=== PATIENT | female | born 1990 | race African-American/Black ===

== ENCOUNTER 2017-08-19 22:30 | Emergency (ER) | payer BC ==
[~2017-08-19] VITALS: Ht 165.1 cm; Wt 124.7 kg
--- OUTSIDE RECORDS SUMMARY | 2017-08-19 22:32 | XMS REPORT ---
Author Author [facility] Address Unknown Phone Unavailable Care Team Providers Care [employer] Dyer Name Role Phone Unavailable Unavailable Problems This patient has no known problems. Allergies, Adverse Reactions, Alerts This patient has no known allergies or adverse reactions. Medications This patient has no known medications. Encounters Start Date/Time End Date/Time Encounter Type Admission Type Attending [facility] Department Encounter ID 2018-06-05 00:00:00 2018-06-05 00:00:00 Outpatient [facility] [id number] 2017-10-18 00:00:00 2017-10-18 00:00:00 Outpatient [facility] [id number] 2017-09-22 00:00:00 2017-09-22 00:00:00 Outpatient [facility] [id number] 2017-09-15 00:00:00 2017-09-15 00:00:00 Outpatient [facility] [id number] 2017-09-08 00:00:00 2017-09-08 00:00:00 Outpatient [facility] [id number] 2017-09-02 00:00:00 2017-09-02 00:00:00 Outpatient [facility] [id number] 2017-08-25 00:00:00 2017-08-25 00:00:00 Outpatient [facility] [id number] 2017-08-25 00:00:00 2017-08-25 00:00:00 Outpatient [facility] [id number] 2017-07-28 15:49:16 2017-07-28 15:49:16 Outpatient [facility] [id number] 2017-06-13 10:43:01 2017-06-13 10:43:01 Outpatient [facility] [id number] 2017-06-02 12:54:31 2017-06-02 12:54:31 Outpatient [facility] [id number] 2017-06-02 09:52:52 2017-06-02 09:52:52 Outpatient [facility] [id number]
== END 2017-08-19 23:00 | disposition left against medical advice (07) ==
LOC: ER 22:30
DX: R42 Dizziness and giddiness (principal)
CPT/HCPCS: 93005

== ENCOUNTER 2024-04-29 00:36 | Emergency (ER) | payer OTHER ==
[~2024-04-29] VITALS: Ht 162.6 cm; Wt 109.8 kg
[~2024-04-29 00:36] MED LIST: FIORICET 50-301 EACH PO; MEDROL4 M2 PO; XOFLUZA80 MG PO
[2024-04-29 00:44] VITALS: TEMP 98.4
[2024-04-29] MEDS: SODIUM CHLORIDE 0.9% 1000ML 1,000 ML IV STA (01:03)
[2024-04-29] MEDS: FAMOTIDINE 20 MG/2 ML VIAL IV STA ×2 (01:03)
[2024-04-29] MEDS: ONDANSETRON HCL INJ 2MG/ML 2ML 2 MG/ML VIAL IV STA (01:03)
[2024-04-29 01:04] LABS: BASOPHILS # (AUTO) 0.1 (0.0-0.1); BASOPHILS % 0.6 % (0.0-1.0); EOSINOPHILS # (AUTO) 0.3 (0.0-0.4); EOSINOPHILS % 3.3 % (0.0-6.0); HEMATOCRIT 42.4 % (34.2-44.1); HEMOGLOBIN 13.3 g/dL (12.0-16.0); LYMPHOCYTES # (AUTO) 3.3 (1.0-3.2); LYMPHOCYTES % 41.5 % (18.0-39.1); MEAN CORPUSCULAR HGB CONC 31.4 g/dL (31-35); MEAN CORPUSCULAR VOLUME 92.6 fL (81-99); MONOCYTES # (AUTO) 0.4 (0.2-0.8); MONOCYTES % 4.8 % (4.4-11.3); NEUTROPHILS # (AUTO) 3.9 (2.1-6.9); NEUTROPHILS % 49.7 % (38.7-80.0); PLATELET COUNT 276 x10e3/uL (140-360); RED BLOOD COUNT 4.58 x10e6/uL (3.6-5.1); RED CELL DISTRIBUTION WIDTH 14.1 % (11.7-14.4)
[2024-04-29 01:19] LABS: ALBUMIN/GLOBULIN RATIO 1.2 (0.8-2.0); ANION GAP 14.6 mmol/L (8-16); BILIRUBIN,TOTAL 0.3 mg/dL (0.2-1.2); CALCIUM 9.4 mg/dL (8.4-10.2); CREATININE, SERUM 1.04 mg/dL (0.57-1.11); POTASSIUM 3.6 mmol/L (3.5-5.1); TOTAL PROTEIN 7.4 g/dL (6.5-8.1)
[2024-04-29 01:22] LABS: BILIRUBIN,URINE NEGATIVE (NEGATIVE); CLARITY,URINE CLEAR (CLEAR); COLOR,URINE YELLOW (YELLOW); GLUCOSE, URINE NEGATIVE (NEGATIVE); KETONES,URINE NEGATIVE (NEGATIVE); LEUKOCYTE ESTERASE ,URINE NEGATIVE (NEGATIVE); NITRITE,URINE NEGATIVE (NEGATIVE); PH,URINE 6 (5 - 7); PROTEIN,URINE DIPSTICK NEGATIVE (NEGATIVE); URINE UROBILINOGEN 0.2 mg/dL (0.2 - 1)
[2024-04-29 01:23] LABS: PREGNANCY TEST, URINE NEGATIVE (NEGATIVE)
[2024-04-29 01:31] LABS: BACTERIA,URINE FEW /HPF; EPITHELIAL CELLS,URINE FEW /LPF; MUCUS,URINE FEW (RARE); WBC,URINE (MAN) 0-5 /HPF (0-5)
[2024-04-29] MEDS ORDERED: IOPAMIDOL 370 MG/ML 100 ML INFUS..BTL INJ ONE (02:01)
[2024-04-29 02:02] VITALS: PULSE 82; RESP 15
[2024-04-29] MEDS ORDERED: PROTONIX20 MG PO (02:47)
[2024-04-29 03:58] VITALS: BP 114/70; PULSE 77; RESP 17; TEMP 98.4; O2SAT 100
== END 2024-04-29 04:00 | disposition home or self-care (01) ==
LOC: ER 00:42
DX: R10.13 Epigastric pain (principal); M54.2 Cervicalgia; M54.9 Dorsalgia, unspecified; J45.909 Unspecified asthma, uncomplicated; G40.909 Epilepsy, unspecified, not intractable, without status epilepticus; F41.9 Anxiety disorder, unspecified
CPT/HCPCS: 36415; 74177; 80053; 81001; 81025; 83690; 85025; 93005; 99284; J2405; J7030; Q9967